=== PATIENT | male | born 1945 | race Caucasian/White ===

== ENCOUNTER 2016-10-05 10:40 | Outpatient (CLI) | payer MEDICARE, OTHER ==
[2016-10-05 13:02] LABS: #Basophils 0.1 thou/uL (0.0-0.2); #Eosinphils 0.2 thou/uL (0.0-0.7); #Lymphocytes 2.7 thou/uL (1.20-3.40); #Monocytes 0.4 thou/uL (0.11-0.59); #Neutrophils 3.3 thou/uL (1.40-6.50); %Basophils 1.5 % (0.0-1.0); %Eosinophils 2.5 % (0.0-10.0); %Lymphocytes 40.4 % (21.0-51.0); %Monocytes 5.9 % (0.0-10.0); %Neutrophils 49.6 % (42.0-75.0); Hemoglobin 15.8 g/dL (14.0-18.0); Mean Corpuscular HGB CONC 33.1 g/dL (32.0-36.0); Mean Corpuscular Hemoglobin 31.2 pg (27.0-31.0); Mean Corpuscular Volume 94.4 fl (80.0-94.0); Mean Platelet Volume 7.9 fL (7.4-10.4); Platelet Count 278 thou/uL (130-400); Red Blood Cell (RBC) Count 5.06 mill/uL (4.70-6.10); White Blood Cell (WBC) Count 6.6 thou/uL (4.8-10.8)
[2016-10-05 13:38] LABS: PSA-Symptomatic (DIAGNOSTIC) Less than 0.02 ng/mL (0-4.0); Thyroid Stimulating Hormone 2.4744 uIU/mL (0.35-4.94)
[2016-10-05 13:41] LABS: ALT (SGPT) 14 U/L (0-55); AST (SGOT) 18 U/L (5-34); Albumin 3.3 g/dL (3.4-4.8); Alkaline Phosphatase 59 U/L (40-150); Anion Gap 14 mmol/L (10-20); BUN (Urea Nitrogen) 18 mg/dL (8.4-25.7); Bilirubin, Direct 0.2 mg/dL (0.1-0.3); Bilirubin, Total 0.5 mg/dL (0.2-1.2); Calc. Creatinine Clearance 0 mL/min (70-130); Calcium 8.8 mg/dL (7.8-10.44); Carbon Dioxide 24 mmol/L (23-31); Cardiac Risk 5.8 (Less than 4.5); Chloride 102 mmol/L (98-107); Cholesterol 216 mg/dL (< 200 Desired); Estimated GFR-MDRD 82; Glucose 110 mg/dL (80-115); HDL Cholesterol 37 mg/dL (>60 Neg Risk); LDL Cholesterol, Calculated 130 mg/dL; Potassium 4.4 mmol/L (3.5-5.1); Sodium 136 mmol/L (136-145); Triglycerides 245 mg/dL (Less than 150)
== END 2016-10-05 10:41 | disposition home or self-care (01) ==
LOC: NAVSJIPCSP 10:40
PROVIDERS: ATTEND Family Medicine
DX: E78.4 Other hyperlipidemia (principal); C61 Malignant neoplasm of prostate; I10 Essential (primary) hypertension; K21.9 Gastro-esophageal reflux disease without esophagitis; M15.9 Polyosteoarthritis, unspecified; L30.9 Dermatitis, unspecified; Z79.899 Other long term (current) drug therapy
CPT/HCPCS: 36415; 80048; 80061; 80076; 83036; 84153; 84443; 85025

== ENCOUNTER 2017-02-08 08:49 | Outpatient (CLI) | payer MEDICARE, OTHER ==
[2017-02-08 12:28] LABS: #Basophils 0.1 thou/uL (0.0-0.2); #Eosinphils 0.3 thou/uL (0.0-0.7); #Monocytes 0.4 thou/uL (0.11-0.59); #Neutrophils 3.3 thou/uL (1.40-6.50); %Basophils 1.7 % (0.0-1.0); %Eosinophils 3.4 % (0.0-10.0); %Lymphocytes 49.1 % (21.0-51.0); %Neutrophils 40.9 % (42.0-75.0); Hemoglobin 16.3 g/dL (14.0-18.0); Mean Corpuscular HGB CONC 32.6 g/dL (32.0-36.0); Mean Platelet Volume 8.1 fL (7.4-10.4); Platelet Count 233 thou/uL (130-400); RBC Distribution Width 11.7 % (11.5-14.5); Red Blood Cell (RBC) Count 5.27 mill/uL (4.70-6.10); White Blood Cell (WBC) Count 8.1 thou/uL (4.8-10.8)
[2017-02-08 12:42] LABS: Hemoglobin A1c 6.1 % (4.0-6.0)
[2017-02-08 12:56] LABS: ALT (SGPT) 14 U/L (8-55); AST (SGOT) 17 U/L (5-34); Albumin 3.3 g/dL (3.4-4.8); Alkaline Phosphatase 56 U/L (40-150); Anion Gap 16 mmol/L (10-20); BUN (Urea Nitrogen) 15 mg/dL (8.4-25.7); Bilirubin, Direct 0.2 mg/dL (0.1-0.3); Bilirubin, Total 0.6 mg/dL (0.2-1.2); Calc. Creatinine Clearance 0 mL/min (70-130); Calcium 8.9 mg/dL (7.8-10.44); Carbon Dioxide 23 mmol/L (23-31); Cardiac Risk 6.2 (Less than 4.5); Chloride 103 mmol/L (98-107); Cholesterol 222 mg/dl (< 200 Desired); Estimated GFR-MDRD 82; Glucose 111 mg/dL (80-115); HDL Cholesterol 36 mg/dL (>60 Neg Risk); LDL Cholesterol, Calculated 132 mg/dL; Potassium 4.4 mmol/L (3.5-5.1); Protein, Total 6.9 g/dL (5.8-8.1); Sodium 138 mmol/L (136-145); Triglycerides 271 mg/dL (Less than 150)
== END 2017-02-08 08:50 | disposition home or self-care (01) ==
LOC: NAVSJIPCSP 08:49
PROVIDERS: ATTEND Family Medicine
DX: E78.4 Other hyperlipidemia (principal); I10 Essential (primary) hypertension; K21.9 Gastro-esophageal reflux disease without esophagitis; M15.9 Polyosteoarthritis, unspecified; L30.9 Dermatitis, unspecified; C61 Malignant neoplasm of prostate; Z79.899 Other long term (current) drug therapy
CPT/HCPCS: 36415; 80048; 80061; 80076; 83036; 84443; 85025

== ENCOUNTER 2018-09-12 08:53 | Outpatient (CLI) | payer MEDICARE, OTHER | END 2018-09-12 08:54 | disposition home or self-care (01) | LOC: NAV ULT 08:53 | PROVIDERS: ATTEND Family Medicine | DX: R01.1 Cardiac murmur, unspecified (principal); I08.3 Combined rheumatic disorders of mitral, aortic and tricuspid valves | CPT/HCPCS: 93306 ==

== ENCOUNTER 2019-01-28 17:23 | Emergency (ER) | payer MEDICARE, OTHER ==
[2019-01-28] MEDS ORDERED: Ondansetron PF 4 MG/2 ML Vial ONE (17:52)
[2019-01-28] MEDS ORDERED: Sodium Chloride 0.9% 1,000 ML ONE ×2 (17:52→18:44)
[2019-01-28 18:01] LABS: #Basophils 0.1 thou/uL (0.0-0.2); #Lymphocytes 2.4 thou/uL (1.20-3.40); #Monocytes 0.7 thou/uL (0.11-0.59); #Neutrophils 12.3 thou/uL (1.40-6.50); %Basophils 0.4 % (0.0-1.0); %Eosinophils 0.2 % (0.0-10.0); %Lymphocytes 15.7 % (21.0-51.0); %Monocytes 4.2 % (0.0-10.0); %Neutrophils 79.6 % (42.0-75.0); Hemoglobin 18.1 g/dL (14.0-18.0); Mean Corpuscular HGB CONC 33.9 g/dL (32.0-36.0); Mean Corpuscular Hemoglobin 30.9 pg (27.0-31.0); Mean Corpuscular Volume 91.1 fL (78.0-98.0); Mean Platelet Volume 7.9 fL (7.4-10.4); Platelet Count 317 thou/uL (130-400); RBC Distribution Width 11.7 % (11.5-14.5); Red Blood Cell (RBC) Count 5.85 mill/uL (4.70-6.10); White Blood Cell (WBC) Count 15.5 thou/uL (4.8-10.8)
[2019-01-28 18:16] LABS: ALT (SGPT) 17 U/L (8-55); AST (SGOT) 17 U/L (5-34); Albumin 3.7 g/dL (3.4-4.8); Alkaline Phosphatase 64 U/L (40-150); Anion Gap 22 mmol/L (10-20); BUN (Urea Nitrogen) 27 mg/dL (8.4-25.7); Bilirubin, Total 0.9 mg/dL (0.2-1.2); Calc. Creatinine Clearance 0 mL/min (70-130); Calcium 10.4 mg/dL (7.8-10.44); Carbon Dioxide 22 mmol/L (23-31); Chloride 97 mmol/L (98-107); Estimated GFR-MDRD 44; Globulin 4.6 g/dL (2.4-3.5); Glucose 175 mg/dL (83-110); Lipase 10 U/L (8-78); Potassium 3.6 mmol/L (3.5-5.1); Protein, Total 8.3 g/dL (5.8-8.1); Sodium 137 mmol/L (136-145)
--- NOTE | 2019-01-28 18:31 | RAD ---
ACUTE ABDOMINAL SERIES: INDICATIONS: Abdominal pain with nausea. FINDINGS: There is bibasilar atelectasis. No pneumoperitoneum is evident. There are prominent gas and fluid f illed loops of small bowel within the central abdomen, suspicious for a moderate to high-grade partia l small bowel obstruction. Recommend CT of the abdomen and pelvis with IV contrast for further efra cterization. IMPRESSION: Findings suspicious for moderate to high-grade partial small bowel obstruction. POS: [facility]
== END 2019-01-28 19:13 | disposition short-term general hospital (02) ==
LOC: NAV ERS 17:23
DX: K56.699 Other intestinal obstruction unspecified as to partial versus complete obstruction (principal); N17.9 Acute kidney failure, unspecified; E86.0 Dehydration; E78.5 Hyperlipidemia, unspecified; I10 Essential (primary) hypertension; F17.220 Nicotine dependence, chewing tobacco, uncomplicated; Z85.46 Personal history of malignant neoplasm of prostate; Z79.899 Other long term (current) drug therapy; Z79.82 Long term (current) use of aspirin
CPT/HCPCS: 74022; 80053; 83605; 83690; 85025; 93005; 96361; 96374; J2405; J7050

== ENCOUNTER 2023-09-27 18:11 | Emergency (ER) | payer MEDICARE, OTHER | END 2023-09-27 19:46 | disposition home or self-care (01) | LOC: NAV ERS 18:11 | DX: I10 Essential (primary) hypertension (principal); E78.00 Pure hypercholesterolemia, unspecified; F17.220 Nicotine dependence, chewing tobacco, uncomplicated; Z79.899 Other long term (current) drug therapy; Z79.82 Long term (current) use of aspirin | CPT/HCPCS: 99283 ==